=== PATIENT | female | born 1965 | race Caucasian/White ===

== ENCOUNTER → 2017-10-28 16:05 | Outpatient (CLI) | payer BC, SELFPAY ==
--- NOTE | 2017-10-28 16:12 | CT_ITS ---
STUDY: CT ABDOMEN AND PELVIS WITH AND WITHOUT CONTRAST REASON FOR EXAM: Female, 51 years old. Generalized abdominal pain. Microhematuria. RADIATION DOSAGE (If Supplied By Facility): CTDIvol = ( 23.21 ) mGy, DLP = ( 2944.41 ) mGycm TECHNIQUE: Transaxial images were obtained from the dome of the diaphragm to the symphysis pubis with oral contrast. 100 ml of Isovue 300 contrast was administered. Sagittal and coronal images were reconstructed. Individualized dose optimization techniques were used for this CT. COMPARISON: None. FINDINGS: The visualized lung bases are unremarkable. The visualized portions of the heart are within normal limits. Normal liver. Normal gallbladder and extrahepatic biliary system. Normal spleen. Normal pancreas. Normal bilateral adrenal glands. Normal right kidney. Normal left kidney. Normal visualized stomach. Normal small intestine. Normal colon. The appendix is well visualized and appears normal. Normal abdominal aorta. Normal inferior vena cava. Normal retroperitoneum. No intra-abdominal free air. Normal urinary bladder. Uterus grossly normal. 2.2 cm simple left ovarian cyst. Normal abdominal wall. Normal osseous structures. CT/CT Abd/Pelvis W/WO Contrast IMPRESSION: Normal unenhanced and enhanced CT of the abdomen and pelvis. No hydronephrosis or urinary tract stones. Bladder is normal. 2 cm simple left ovarian cyst compatible with a physiologic cyst. Electronically Signed: Gaudencio Power MD at 7:46 EDT , Service support ,
== END ==
LOC: CT 16:09
PROVIDERS: Family Provider Family Medicine; PCP Family Medicine; Visit Provider Nurse Practitioner Adult Health
DX: R31.21 Asymptomatic microscopic hematuria (principal); R10.9 Unspecified abdominal pain
CPT/HCPCS: 74178; Q9967

== ENCOUNTER 2021-05-20 10:18 | Outpatient (CLI) | payer BC, SELFPAY | END 2021-05-20 23:59 | disposition short-term general hospital (02) | LOC: LABSPEC 05-21 10:22 | PROVIDERS: PCP Family Medicine; Visit Provider Physician Assistant | DX: J02.9 Acute pharyngitis, unspecified (principal) | CPT/HCPCS: 87081 ==

== ENCOUNTER 2023-09-08 16:00 | Outpatient (RCR) | payer OTHER, SELFPAY ==
--- NOTE | 2023-08-22 19:24 | HP.OTEVAL_ITS ---
Patient's Visit Information Visit Information Visit Information: LYNN SIMON is a 57 year old F, referred to Occupational Therapy by COMFORT Brooks, with a diagnosis of left lateral epi/medial epicondylitis. Date of Evaluation: 08/22/23 Occupational Therapist: Tila Gibson, OG/Juliana, CHT Subjective Subjective: This 57 year old female was seen for OT eval with dx of medial and lateral epicondylitis. Pt states she struggled with left elbow pain - pt states she does not remember a definitive event that caused her pain. pt is right handed pt works for [employer]- pt has worked there for 8 years. 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 pt states in Jun. she did go to the work nurse. pt states work nurse did wrap her arm and sent her to [facility]. Pt states she was given steroids' and muscle relaxer for night. pt states she did ice a few times but did not find this helpful. pt states she does feel her arm is more relaxed after hot shower. pt states she can not sleep due to pain pt states she just would like to use her arm at her PLOF and be pain free. 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 straight 55# left 35# (started to get painful) Special Tests Lat Epiconylitis - as named: positive left Quick DASH-Disab of Arm,Shoulder& Hand Quick DASH Score: 65.0000 Goals Goal:: pt will demo a increase in left outpatient admitting clerk strength to 50# or greater to return pt to her PLOF with work and ADLs tasks by dAshleyc Goal:: pt will demo a increase in left elbow flexion to 145* or greater without report of pain by d.c Goal:: pt will report pain no greater than 3/10 with use of left UE with ADLs and work tasks by d.c Goal:: Pt will demo understanding of work/lifting and carry ergonomics to decrease stress on tendons to increase pts independent with ADLs, IADLS and work tasks by d/c. Pt will demo understanding of joint protection and ergonomics when performing BADLs and IADLs by d/c Pt will demo understanding of adaptive Equipment use to decrease stress on joints to allow pt to perform BADSL and IADLS at ISMA level. Goal:: Pt will demo understanding of using supportive bracing 80% of workday/ADLS to decrease stress on tendon origin to allow healing and decrease pain by end of 2nd session. Rehabilitation General Assessment: pt demo with left elbow pain weakness limiting use of left UE with ADls and work tasks. Pt would benefit from skilled OT services 2-3x week for 4-6 weeks to return pt to her PLOF. Today therapist ed. pt on use of bracing- joint protection and lateral epi precautions. pt was given phase I of lateral epicondylitis Protocol conservative methods- Pt demo understanding and agree to POC. Rehabilitation Potential: Good Anticipated Interventions Anticipated Interventions: A/AAROM/PROM, Strengthening, Triggerpoint Release, Modalities, Orthoses, Joint Protection/Energy Conservation, Ergonomic Education, ADL Training, Education re assistive Equipment, Education re Diagnosis, Caregiver Training and Home Program Visit Plan Frequency: 2-3x /Week Duration: 6 Weeks TEXT: Thank you for the opportunity to evaluate your patient. For Medicare and Medicare HMO plans, please review the plan of care and approve it. It will need to be FAXED BACK to us at [phone] for Medicare purposes. Please let me know if there are questions or concerns regarding this plan of care. Physician Signature: Date:
--- NOTE | 2023-09-07 16:29 | HP.OTREVAL ---
Re-Evaluation Intro: COMFORT Brooks, It has been my pleasure to treat LYNN SIMON over the last 8 visits for left lateral epi/medial epicondylitis. Please see the progress note below for an update on the occupational therapy plan of care! Subjective Subjective: pt arrives this date doing well no new complaints Objective Objective/Function: wrist is better- noted nodule at lat. 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 ongoing Pt will demo understanding of joint protection and ergonomics when performing BADLs and IADLs by d/c ongoing Pt will demo understanding of adaptive Equipment use to decrease stress on joints to allow pt to perform BADSL and IADLS at ISMA level. ongoing Goal:: Pt will demo understanding of using supportive bracing 80% of workday/ADLS to decrease stress on tendon origin to allow healing and decrease pain by end of 2nd session. -- goal met Anticipated Interventions Anticipated Interventions Anticipated Interventions: A/AAROM/PROM, Strengthening, Triggerpoint Release, Modalities, Orthoses, Joint Protection/Energy Conservation, Ergonomic Education, ADL Training, Education re assistive Equipment, Education re Diagnosis, Caregiver Training and Home Program Re-Evaluation Ending Re-evaluation ending: Please do not hesitate to contact me at [phone] by phone or if you have questions or concerns regarding this new plan of care! Sincerely, Majo Parkinson
== END 2023-09-08 19:00 | disposition home or self-care (01) ==
LOC: OT 16:00
PROVIDERS: PCP Family Medicine; Referring Provider Physician Assistant; Visit Provider Physician Assistant
DX: M77.12 Lateral epicondylitis, left elbow (principal); M77.02 Medial epicondylitis, left elbow; S46.312D Strain of muscle, fascia and tendon of triceps, left arm, subsequent encounter
CPT/HCPCS: 97035; 97110; 97140; 97166; 97530

== ENCOUNTER → 2025-03-13 | Outpatient (CLI) | payer OTHER, SELFPAY ==
--- NOTE | 2025-03-13 17:09 | MRI_ITS ---
PROCEDURE: UPPER EXT JOINT ONLY(ROUTINE) 03/13/2025 REASON FOR EXAM: PAIN, TENNIS ELBOW. TECHNIQUE: Procedure Code: MRIUEJ Modality: MR Procedure: UPPER EXT JOINT ONLY(ROUTINE) T1, T2, stir, multiplanar and multisequence images were obtained of the left elbow without IV contrast administration. COMPARISON: COMPARISON: None FINDINGS: Bone Marrow: There is mild subcortical edema in the posterior capitellum articular surface. There is normal marrow signal seen in the distal humerus and in the visualized radius and ulna with no evidence of bony contusion or occult injury. Effusion: There is no joint effusion. Soft Tissues: The biceps and triceps tendons are normal in appearance. There is a partial thickness undersurface tear of the anterior aspect of the common extensor tendon origin with adjacent fluid signal noted. There is increased T2 signal, thickening and attenuation in the radial collateral ligament, and lateral ulnar collateral ligament with lax components, grade 2-3 sprain. There is posterior lateral subluxation of the radial head with laxity demonstrated. The common flexor tendon is normal in appearance. Neurovascular bundle and ulnar nerves are normal in appearance. Ligaments and Tendons: The triceps tendon appears intact. The biceps tendon appears intact. The brachialis tendon is normal in appearance. MRI/Upper Ext Joint Only(Routine) IMPRESSION: There is a partial thickness undersurface tear of the anterior aspect of the co mmon extensor tendon origin with adjacent fluid signal noted. There is increased T2 signal, thickening and attenuation in the radial collateral ligament, and lateral ulnar collateral ligament with lax components, grade 2-3 sprain. There is posterior lateral subluxation of the radial head with laxity demonstrated. Findings are consistent with lateral epicondylitis. Reading Location: [facility]
--- OUTSIDE RECORDS SUMMARY | 2025-03-13 19:28 | XMS RPT_ITS | CCD ---
Author Organization [facility] Care Team Providers Care Specialist Physicians Name Role Phone WARREN CRAIG, SAMY Zamora Attending Unavailable NELLIE CRAIG, SHY Zamora Primary Care Unavailable GABI HOYOS, JAYDON Hamm Attending Unavailable NELLIE CRAIG, SHY Zamora Primary Care Unavailable Nellie, Shy Primary Care Unavailable Nellie, Shy Referring Unavailable Jama Castro Attending Unavailable Nellie, Shy Primary Care Unavailable Nellie, Shy Referring Unavailable Jama Castro Attending Unavailable Adolfo Ruiz Attending Unavailable Nellie, Shy Primary Care Unavailable Shy Ballard Referring Unavailable Jama Castro Referring Unavailable Nellie, Shy Primary Care Unavailable Jama Castro Attending Unavailable Problems Problem Classification Problem Date Documented Da te Episodic/Chronic Other connective tissue disease (1 source) Lateral epicondylitis, left elbow; Translations: [Lateral epicondylitis, left elbow] Onset: 03-11-2025 Episodic Results Test Name Value Interpretation Reference Range [facility] Visit Reporton Orthopedic Visit Report [facility] [address] [place] [id number] OFFICE VISIT Date of Service: 02/26/25 MR#: [id number] Acct: [id number] Name: LYNN SIMON I Rep #: [id number] : 1965 Provider: Dr. Jama sheppard MD Age/Sex: 59/F Location: [facility] [place] Status: Signed Intake Vital Signs 07/23/24 15:56 Height 5 ft 2 in Weight: 168 lb BMI 30.7 Intake Visit Reasons: LEFT ELBOW Chief Complaint: Left elbow pain Accompanied by: Self Is patient in pain?: Yes Pain scale (1-10): 5 Allergies No Known Allergies Allergy (Verified 02/26/25 11:01) Medications ???Medication ???Instructions ???Recorded ???Confirmed ???Type NK 02/26/25 02/26/25 History PFSH Medical History Strain of left triceps Medial epicondylitis, left elbow Left lateral epicondylitis Encounter for screening for COVID-19 Acute pain of both ears Acute pharyngitis, unspecified Fever Fatigue Carpal tunnel syndrome Surgical History History of tubal ligation HPI LEFT ELBOW Details: This documentation accurately reflects the service provided and the decisions made by me, Dr. Jama Castro MD 02/26/25 1057. Part of today???s visit was documented by [ ], acting as scribe. LYNN SIMON is a 59 year old F here today for FU L elbow lateral epicondylitis, WCB claim. Last injection was over 6 months ago it still seems effective the pain has returned for about a month it seems to be worse with repetitive activities. The patient has been doing full duties at work. Has to lift about 5 pounds. Ortho Exam General General: Yes no acute distress Neurologic: Yes alert and Yes oriented x3 Psychologic: Yes reasonable and appropriate Left Elbow Skin/Wound: Yes CDI, No eccymosis, No erythema and No Swelling Test: No Valgus Stress Test, No Varus Stress Test, No TTP Medial Epicondyle, Yes TTP Lateral Epicondyle, Yes Pain w/ resist wrist ext, No Pain w/ resist wrist flex, No Pain w/ resist pronation, No Pain w/ resist 3rd dig ext, No Thenar Atrophy, No Ulnar Nerve Subluxation, No Thenar Atrophy and No Hypothenar Atrophy ROM: Yes Flexion 0-140, Supination 0-90 and Pronation 0-80 Sensation: Radial: I, Ulnar: I and Median: I Motor: Elbow Extension: 5, Elbow Flexion: 5, EPL: 5, FDP-2: 5 and 1st Dorsal Interosseous: 5 Office Procedures Ortho Injections Injections Yes Lateral Epicondyle Left Is this a patient provided medication?: No Details: Obtained consent for injection. Under sterile conditions, injected the patients left lateral epicondyle with 1cc Kenalog, and 3cc Bupivacaine. The patient tolerated the injection well without any noted complication. Patient should call our office if redness develops, pain worsens or if they have any concerns. Office Meds Kenalog 40 mg/mL suspension for injection Performing Provider: Jama Castro MD Performing Location: [facility] Administered by: Jama Castro MD on 02/26/25 11:23 Dose Route Admin Location Dispensed Lot Number Expiration Date Package NDC NDC Behavioral Health Technician 40 mg intra-articular left lateral epicondyle 1 mL [id number] 05/02/26 26128-476- 10 [id number] [facility] Coding Level of Care Code Attention Zahra Diagnoses Left lateral epicondylitis M77.12 CPT Codes port purser.lat () Comment 94548 and cpt inject elbow tendon Assessment and Plan Assessment and Plan (1) Left lateral epicondylitis: Status: Acute Plan: LYNN SIMON is a 59 year old F here today for 6 months FU left elbow lateral epicondylitis, prior injection, WBC claim. Patient wishes to proceed with repeat injection. Will order MRI at this point since had 3 injections now to look at tendon, and FU after. Will remove restrictions as patient able to complete full job duties at the moment. Tennis elbow, or lateral epicondylitis, can be treated through both non-surgical and surgical options. Non-surgical treatments often include rest, ice application, physical therapy, anti-inf lammatory medications, and the use of braces to alleviate stress on the elbow. In more severe cases, corticosteroid injections or platelet-rich plasma (PRP) therapy might be considered to promote healing. If these conservative methods fail, surgical intervention may be necessary. Surgical options typically involve removing damaged tissue or repairing tendons through either traditional open surgery or minimally invasive arthroscopic techniques. The choice between non-surgical and surgical treatments depends on the severity of the condition and the patient's response to initial therapies. Left elbow lateral epicondyle cortisone injection We discussed the pros and cons risks and benefits of going a (more content not included)... Normal [facility] Visit Reporton Orthopedic Visit Report [facility] [address] [place] [id number] OFFICE VISIT Date of Service: 07/23/24 MR#: [id number] Acct: [id number] Name: LYNN SIMON I Rep #: [id number] : 1965 Provider: Dr. Jama sheppard MD Age/Sex: 58/F Location: [facility] [place] Status: Signed with Addenda ADDENDUM by LEA Hamilton on 07/23/24 at 1616 Office Procedure Documentation entered by Wilman Hamilton MA 07/23/24 16:16: Ortho Injections Injections Yes Lateral Epicondyle Is this a patient provided medication?: No Details: Obtained consent for injection. Under sterile conditions, injected the patients lrft elbow with 1cc Kenalog, and 3cc Bupivacaine. The patient tolerated the injection well without any noted complication. Patient should call our office if redness develops, pain worsens or if they have any concerns. Office Meds Kenalog 40 mg/mL suspension for injection Performing Provider: Jama Castro MD Performing Location: [facility] Administered by: Jama Castro MD on 07/23/24 16:14 Dose Route Admin Location Dispensed Lot Number Expiration Date [facility] Man ufacturer 40 mg intra-articular Left elbow 1 mL [id number] 08/30/25 0861-4632-37 [facility] [place] [facility] Date cc: * Signed Intake Vital Signs 07/17/24 16:10 07/23/24 15:56 Height 5 ft 2 in 5 ft 2 in Weight: 168 lb BMI 30.7 Intake Visit Reasons: left elbow Chief Complaint: Left elbow pain Accompanied by: Self Is patient in pain?: Yes Pain scale (1-10): 5 Allergies No Known Allergies Allergy (Verified 07/23/24 15:59) Have you fallen in the past year?: No PFSH Medical History Strain of left triceps Medial epicondylitis, left elbow Left lateral epicondylitis Encounter for screening for COVID-19 Acute pain of both ears Acute pharyngitis, unspecified Fever Fatigue Carpal tunnel syndrome Surgical History History of tubal ligation HPI left elbow Details: This documentation accurately reflects the service provided and the decisions made by me, Dr. Jama Castro MD 07/23/24 1301. Part of today???s visit was documented by [ ], acting as scribe. LYNN SIMON is a 58 year old F here today for 6 months FU left elbow lateral epicondylitis, prior injection, WBC claim. 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 The last injection was effective but the pain has come back on the lateral aspect of the elbow for now about a month. Coding Level of Care Code Attention Medical Assembly Diagnoses Left lateral epicondylitis M77.12 Comment 69692 and cpt inject elbow tendon Assessment and Plan Assessment and Plan (1) Left lateral epicondylitis: Status: Acute Plan: LYNN SIMON is a 58 year old F here today for 6 months FU left elbow lateral epicondylitis, prior injection, WBC claim. Patient wishes to proceed with repeat injection and will follow-up as needed. Tennis elbow, or lateral epicondylitis, can be treated through both non-surgical and surgical options. Non-surgical treatments often include rest, ice application, physical therapy, anti-infla mmatory medications, and the use of braces to alleviate stress on the elbow. In more severe cases, corticosteroid injections or platelet-rich plasma (PRP) therapy might be considered to promote healing. If these conservative methods fail, surgical intervention may be necessary. Surgical options typically involve removing damaged tissue or repairing tendons through either traditional open surgery or minimally invasive arthroscopic techniques. The choice between non-surgical and surgical treatments depends on the severity of the condition and the patient's response to initial therapies. Left elbow lateral epicondyle cortisone injection We discussed the pros and cons risks and benefits of going ahead with left elbow lateral epicondyle cortisone injection. The risks include but are not limited to infection, pain, acute flare reaction, stiffness, bleeding, damage to surrounding structures, worsening arthritis or damage to the cartilage. The patient wished to proceed. The lateral aspect of the elbow was prepped with chlorhexidine in the usual sterile fashion. Sterile no touch technique was employed. Used Gebauer spray per bottle instructions. Preprocedure timeout performed. 1 cc of 40 mg/mL Kenalog with 3 cc of 0.25% bupivicaine was injected at the left elbow lateral epicondyle. Bandage placed.The patient tolerated procedure well. There is no complications. Standard post procedure care instructions were given. Red flag symptoms were discussed in which (more content not included)... Normal [facility] Visit Reporton 0 05-31-2024 Urgent Care Visit Report [facility] [address], [address] [place] [address] OFFICE VISIT Date of Service: 05/31/24 MR#: [id number] Acct: [id number] Name: LYNN SIMON I Rep #: [id number] : 1965 Provider: COMFORT Moon Age/Sex: 58/F Location: [facility] [place] Status: Signed Intake Vital Signs 10/05/23 16:03 05/31/24 06:28 Height 5 ft 2 in BP 142/70 H Blood Pressure Location Lt brachial Position Sitting Respiration 16 Pulse 67 Pulse Source NIBP Temp 98.4 F Temp Source Oral Pulse Oximetry (%) 98 Oxygen Delivery Method room air Intake Visit Reasons: COUGH, BODY ACHES, CONGESTION Chief Complaint: cough, BA, congest, diarrhea 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 [facility] Medical History Strain of left triceps Medial epicondylitis, left elbow Left lateral epicondylitis Encounter for screening for COVID-19 Acute pain of both ears Acute pharyngitis, unspecified Fever Fatigue Carpal tunnel syndrome Surgical History History of tubal ligation HPI HPI Chief Complaint: cough, BA, congest, diarrhea Details: LYNN SIMON, is a 58 F who presents to the office today for complaint of cough, congestion, mild bodyaches and diarrhea. Patient states this started approximately 3 days ago. She denies hemopty sis, shortness of breath or difficulty breathing. She had not no fever, chills or sweats. No loss of taste or smell. No other associated symptoms or alleviating/aggravat ing factors. ROS Const Constitutional: No other (As above) Exam Const General: cooperative and well developed HENMT Head: normal to inspection and atraumatic Ears: hearing grossly normal bilaterally Nose: nasal discharge clear Face and sinus: normal facial exam Mouth: oral mucosae normal Throat: abnormal tonsil bilaterally hypertrophy 1+ Resp Effort Inspection: normal respiratory effort and no audible wheezes Auscultation: Bilateral: Clear to Auscultation Cardio Palpation: normal PMI Rate: regular rate Rhythm: regular rhythm Neuro General: patient alert and CN's II-XI intact bilaterally Psych Appearance: grossly normal Mental Status: mental status grossly normal Results POC SEFERINO Covid FluAB PCR POC Seferino Covid PCR Not Detected Last Edit by Marialuisa Carlton on 05/31/24 06:37 POC SEFERINO FLU NOT DETECTED FLU A B Last Edit by Marialuisa Carlton on 05/31/24 06:37 Coding Level of Care Code Off vis,est,level 3 Diagnoses Contact with or suspected exposure to other viral communicable disease Z20.828 Acute upper respiratory infection J06.9 Assessment and Plan Assessment and Plan (1) Contact with or suspected exposure to other viral communicable disease: Status: Acute (2) Acute upper respiratory infection: Status: Acute Orders: Orders POC Seferino Covid FLUAB PCR Today Medications: New benzonatate 200 mg (2 x 100 mg) PO TID PRN 30 caps 0RF cough methylprednisolone (Medrol (Hola)) 4 mg PO PER PKG DIR 6 days 21 tabs 0RF Plan Patient tested negative for influenza and COVID in the office today. Benzonatate and Medrol Dosepak as prescribed today. Encouraged to get plenty of rest, drink lots of clear liquids, and use Tylenol or Ibuprofen (unless contraindicated) for fever and comfort. Patient also educated on other symptomatic management techniques. To be seen in 7-10 days if no improvement; sooner if worsening of symptoms. Patient advised of potential red flags and when appropriate to report to the ED. Patient verbalized understanding and agreement with all the above. Clinical Quality Measures Falls Risk Screening/Assistive Devices Have you fallen in the past year?: No 05/31/24 0642 Date Adolfo Shuklaignshamar Signature: Date (if applicable) CC: Normal [facility] XR ANKLE AND FOOT 6 VIEWS LE FTon 10-30-2022 XR ANKLE AND FOOT 6 VIEWS LEFT ORIGINAL EXAMINATION: 6 XRAY VIEWS OF THE LEFT FOOT AND ANKLE 10/30/2022 8:27 am COMPARISON: None. HISTORY: ORDERING SYSTEM PROVIDED HISTORY: Reason for Exam: pain Fall today, lateral foot pain, lateral ankle pain FINDINGS: There are a couple 2 mm osseous bodies at the medial malleolus as well as a 2 mm osseous body posterior to the posterior malleolar. These findings may represent small avulsion fractures. No other acute fracture identified. The talar dome and ankle mortise are maintained. Soft tissue swelling noted overlying the lateral malleolus. Small ankle joint effusion. No significant degenerative changes of the foot or ankle. Calcaneal enthesopathy noted. IMPRESSION: Tiny osseous bodies at the medial and posterior malleoli may represent small avulsion fractures. Correlate with point tenderness. Ankle soft tissue swelling greatest at the lateral malleolus. Interpreted by: Ca Ross Preliminary Report By: Ca Ross Electronically signed By Ca Ross Dictated Date: 10/30/2022 8:33:00 AM Prelim Date: 10/30/2022 8:43:27 AM Sign Date: 10/30/2022 8:43:27 AM Ordering Provider: SAMY KELLEY [facility] ([place]) Encounters Encounter Date Encounter Type Care Provider Facility Start: 03-13-2025 ambulatory Jama Castro Facility :[facility] Start: 02-26-2025 End: 02-26-2025 ambulatory Shy Ballard Facility:[facility] [place] Start: 07-23-2024 End: 07-23-2024 ambulatory Shy Ballard Facility:[facility] Start: 05-31-2024 End: 05-31-2024 ambulatory Adolfo MOYER Facility:[facility] Start: 11-17-2022 End: 01-30-2023 ambulatory RAY Noris GABI HOYOS Facility:[facility] Start: 10-30-2022 End: 10-30-2022 Emergency department patient visit SAMY KELLEY MD Facility:[facility] Payers Date Payer Category Payer Unknown [id number] 2024 Self-pay 2022 Unknown [id number] 1965 Unknown [id number] 2.16.8 [id number] 1965 Unknown [id number] 2.16.8 [id number] Unknown [id number] 2.16.8 [id number] Unknown [id number] 2.16.8 [id number] Unknown [id number] 2.16.8 [id number] Unknown [id number] 2.16.8 [id number] Summary Purpose Family History No Family History Records FoundNo Family History Records Found Advance Directives No Advanced Directives Records FoundNo Advanced Directives Records Found Additional Source Comments INFORMATION SOURCE (unrecogn ized section and content) DATE CREATED AUTHOR 03/02/2023 [facility] ([place]) DATE CREATED AUTHOR AUTHOR'S ORGANIZ ATION 03/12/2025 [facility] FOR RECORDS PERTAINING TO PATIENTS WHO ARE OR HAVE BEEN ENROLLED IN A CHEMICAL DEPENDENCY/SUBSTANCEABUSE PROGRAM, SOME INFORMATION MAY BE OMITTED. This clinical summary was aggregated from multiple sources. Caution should be exercised in using it in the provision of clinical care. This summary normalizes information from multiple sources, and as a consequence, information in this document may materially change the coding, format and clinical context of patient data. In addition, data may be omitted in some cases. CLINICAL DECISIONS SHOULD BE BASED ON THE PRIMARY CLINICAL RECORDS. [facility]. provides no warranty or guarantee of the accuracy or completeness of information in this document.
== END | disposition home or self-care (01) ==
LOC: MRI 17:07
PROVIDERS: PCP Family Medicine; Referring Provider Orthopaedic Surgery Sports Medicine; Visit Provider Orthopaedic Surgery Sports Medicine
DX: M77.12 Lateral epicondylitis, left elbow (principal)
CPT/HCPCS: 73221